=== PATIENT | male | born 1970 | race Caucasian/White ===

== ENCOUNTER 2022-07-31 09:43 | Outpatient (REF) | payer OTHER, SELFPAY ==
[2022-07-31 15:15] LABS: Influenza A PCR NEGATIVE (Negative); Influenza B PCR NEGATIVE (Negative); Resp Syncy Virus RNA Qual PCR NEGATIVE (Negative); SARS COV2 PCR INHOUSE NEGATIVE (Negative)
== END 2022-07-31 09:44 | disposition home or self-care (01) ==
LOC: HO.LAB 09:43
PROVIDERS: Visit Provider Family Medicine
DX: Z20.822 Contact with and (suspected) exposure to COVID-19 (principal)
CPT/HCPCS: 0241U

== ENCOUNTER 2023-11-13 08:20 | Outpatient (AMB) | payer OTHER, SELFPAY ==
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
[2023-11-13 08:29] VITALS: BP 144/100; PULSE 64; O2SAT 98; BMI 35.4
== END 2023-11-13 11:06 | disposition home or self-care (01) ==
PROVIDERS: PCP Internal Medicine; Visit Provider Nurse Practitioner Family
DX: R51.9 Headache, unspecified (principal); G93.0 Cerebral cysts; R90.82 White matter disease, unspecified; G47.19 Other hypersomnia; Z86.69 Personal history of other diseases of the nervous system and sense organs; G47.9 Sleep disorder, unspecified; R25.1 Tremor, unspecified; R06.83 Snoring
CPT/HCPCS: 99204

== ENCOUNTER → 2023-11-13 08:20 | Outpatient (BNVA) | payer OTHER, SELFPAY | PROVIDERS: PCP Internal Medicine; Visit Provider Nurse Practitioner Family ==

== ENCOUNTER 2023-11-13 10:10 | Outpatient (REF) | payer OTHER, SELFPAY ==
[2023-11-13 17:25] LABS: MANUAL DIFF FLAG NO
[2023-11-13 17:32] LABS: Basophils Percent Auto 0.6 % (0-2); Eosinophils Absolute Auto 0.1 X10*3/uL (0.0-0.4); Eosinophils Percent Auto 1.7 % (0-4); Hematocrit 42.5 % (42.0-52.0); Hemoglobin 14.5 g/dl (14.0-18.0); Imm Gran Abs Auto 0.02 X10*3/uL (0.00-0.03); Imm Gran Pct Auto 0.4 % (0.0-0.4); Lymphocytes Absolute Auto 1.7 X10*3/uL (1.2-4.9); Lymphocytes Percent Auto 31.1 % (20-40); Mean Corpuscular HGB Conc 34.1 g/dl (31.0-36.0); Mean Corpuscular Hemoglobin 29.8 pg (27.0-33.0); Mean Corpuscular Volume 87.3 fL (80.0-98.0); Mean Platelet Volume 11.6 fL (9.4-12.4); Monocytes Absolute Auto 0.4 X10*3/uL (0.1-1.2); Monocytes Percent Auto 7.8 % (2-11); Neutrophils Absolute Auto 3.2 x10*3/uL (2.0-8.3); Neutrophils Percent Auto 58.4 % (45-73); Platelet Count 245 X10*3/uL (160-400); Red Blood Count 4.87 X10*6/uL (4.60-5.80); Red Cell Distribution Width 12.3 % (11.0-16.0); White Blood Count 5.4 X10*3/uL (4.8-10.8)
[2023-11-13 18:19] LABS: Rheumatoid Factor < 13.0 IU/mL (<15.0)
[2023-11-13 18:24] LABS: Alanine Aminotransferase 21 U/L (0-40); Albumin Level 4.4 g/dL (3.5-5.0); Alkaline Phosphatase 65 U/L (39-117); Anion Gap 14 (12-20); Aspartate Amino Transferase 15 U/L (5-37); Blood Urea Nitrogen 15 mg/dL (9-16); Calcium 9.8 mg/dL (8.4-10.2); Carbon Dioxide 23 mmol/L (22-29); Chloride 106 mmol/L (96-108); Estimated Glomerular Filt Rate > 60; Glucose Random 105 mg/dL (60-115); Potassium 4.5 mmol/L (3.3-5.1); Sodium 138 mmol/L (135-145); Total Protein 7.3 g/dL (6.5-8.0)
[2023-11-13 18:31] LABS: TSH reflex Free T4 0.98 uIU/mL (0.32-4.0)
[2023-11-13 18:33] LABS: Erythrocyte Sedimentation Rate 6 MM/HR (0-15)
[2023-11-14 17:14] LABS: CRP High Sensitivity 1.7 mg/L
[2023-11-14 17:43] LABS: Lyme Abs Screen <0.90 index
[2023-11-21 11:02] LABS: Anti Nuclear Antibody Screen NEGATIVE (NEGATIVE)
== END 2023-11-13 10:11 | disposition home or self-care (01) ==
LOC: HO.HKASLDS 10:10
PROVIDERS: Visit Provider Nurse Practitioner Family
DX: R51.9 Headache, unspecified (principal); I10 Essential (primary) hypertension
CPT/HCPCS: 36415; 80053; 84443; 85025; 85652; 86038; 86141; 86431; 86617; 86618

== ENCOUNTER 2023-12-31 08:34 | Outpatient (REF) | payer OTHER, SELFPAY ==
--- NOTE | ~2023-12-31 | XR_ITS ---
EXAMINATION: ORBITS PRE-MRI CLINICAL INFORMATION: Pre-MRI COMPARISON: None available. TECHNIQUE: 3 views FINDINGS: No radiopaque foreign body. Orbits intact. Visualized paranasal sinuses clear. XR/XR pre mri screening IMPRESSION: Negative Electronically signed by: Pancho Blanchard MD 12/31/2023 09:13 AM EDT RP
--- NOTE | ~2023-12-31 | MR_ITS ---
EXAMINATION: MR BRAIN WITH AND WITHOUT CONTRAST CLINICAL INFORMATION: arachnoid cyst, history of frontal lobe tumor, TIA, prior trauma, tremors, concern for left trigeminal nerve pathology COMPARISON: None. TECHNIQUE: MRI of the brain was obtained using routine sequences before and following administration of intravenous contrast. A total of 10 mL of Gadavist was administered intravenously. FINDINGS: The left superior cerebellar artery is seen interposed between the left lateral kalen and proximal cisternal left trigeminal nerve near the root entry zone (image 62, series 18) with possible slight deformity that can be correlated clinically for neurovascular compression. The right superior cerebellar artery contacts the superomedial aspect of the proximal right cisternal trigeminal nerve without deformity. No abnormal enhancement or mass along the intracranial and extracranial course of the trigeminal nerves. Normal fluid signal intensity of Meckel's caves. Fat within the periorbital fissures, pterygopalatine fossa, trigeminal fat pad, and mandibular alveolar foramina is preserved. No acute infarct. No extra-axial fluid collection. The ventricles and sulci are normal in size and configuration without significant volume loss or hydrocephalus. A couple nonspecific T2 FLAIR hyperintense foci in the supratentorial white matter of no clinical significance. No abnormal intraparenchymal or leptomeningeal enhancement. No significant mass effect or herniation pattern. The intracranial dural venous sinus and arterial flow voids are preserved. Prominence of the left-sided retrocerebellar CSF space with mild mass effect along the left cerebellum suggestive of an arachnoid cyst. There is also focal prominence of the extra-axial CSF space along the left parasagittal parietal convexity for which an additional arachnoid cyst at this location is not excluded. The orbits are grossly unremarkable. Retention cyst in the left maxillary sinus and trace mucosal thickening of the ethmoid air cells and maxillary sinuses. No mastoid effusion. Normal marrow signal. MR/MR head/brain wo/w con IMPRESSION: 1. The left superior cerebellar artery is seen interposed between the left lateral kalen and proximal cisternal left trigeminal nerve near the root entry zone (image 62, series 18) with possible slight deformity that can be correlated clinically for neurovascular compression. 2. The right superior cerebellar artery contacts the superomedial aspect of the proximal right cisternal trigeminal nerve without deformity. 3. 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 4. Prominence of the left-sided retrocerebellar CSF space with mild mass effect along the left cerebellum suggestive of an arachnoid cyst. Electronically signed by: Angela Avendano MD 01/16/2024 04:39 PM EDT RP
[2023-12-31] MEDS: gadobutroL 10 ML VIAL IVPUSH (10:42)
== END 2023-12-31 08:35 | disposition home or self-care (01) ==
LOC: HO.MRI 08:34
PROVIDERS: PCP Internal Medicine; Visit Provider Nurse Practitioner Family
DX: R51.9 Headache, unspecified (principal); G93.0 Cerebral cysts; R90.82 White matter disease, unspecified
CPT/HCPCS: 70553; A9585

== ENCOUNTER → 2023-12-31 10:00 | Outpatient (BNV) | payer OTHER, SELFPAY | PROVIDERS: PCP Internal Medicine; Visit Provider Psychiatry & Neurology Neurology | DX: G47.33 Obstructive sleep apnea (adult) (pediatric) (principal) | CPT/HCPCS: 95806 ==

== ENCOUNTER → 2023-12-31 10:57 | Outpatient (REF) | payer OTHER, SELFPAY | LOC: HO.SL 10:57 | PROVIDERS: PCP Internal Medicine; Visit Provider Nurse Practitioner Family | DX: G47.00 Insomnia, unspecified (principal); G47.19 Other hypersomnia; Z86.69 Personal history of other diseases of the nervous system and sense organs; G47.9 Sleep disorder, unspecified | CPT/HCPCS: 95806 ==

== ENCOUNTER → 2024-02-05 20:30 | Outpatient (REF) | payer OTHER, SELFPAY | LOC: HO.SL 20:30 | PROVIDERS: PCP Internal Medicine; Visit Provider Nurse Practitioner Family | DX: G47.34 Idiopathic sleep related nonobstructive alveolar hypoventilation (principal); G47.33 Obstructive sleep apnea (adult) (pediatric); R06.09 Other forms of dyspnea | CPT/HCPCS: 95811 ==

== ENCOUNTER → 2024-02-05 21:21 | Outpatient (BNV) | payer OTHER, SELFPAY | PROVIDERS: PCP Internal Medicine; Visit Provider Psychiatry & Neurology Neurology | DX: G47.33 Obstructive sleep apnea (adult) (pediatric) (principal); G47.34 Idiopathic sleep related nonobstructive alveolar hypoventilation | CPT/HCPCS: 95811 ==

== ENCOUNTER 2024-02-18 13:02 | Outpatient (AMB) | payer OTHER, SELFPAY ==
[2024-02-18 13:16] VITALS: BP 120/70; PULSE 96; BMI 35.6
--- NOTE | 2024-02-18 13:16 | MHC.OFFVIS ---
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 He states that over the last year or so, he has been getting short of breath with activity. He also gets dizzy at times. No known cardiac history. Today, his EKG shows atrial fibrillation but he states he is not aware of that. Otherwise, no known coronary disease or myocardial infarction or cardiomyopathy. [facility] Surgical History H/O hernia repair H/O lithotripsy Family History Mother HTN (hypertension) Stroke Social History Alcohol intake: current Patient Tobacco Use Status: Never used Tobacco Review of Systems Const Denies chills, Denies fatigue, Denies fever(s), Denies frequent falls, Denies weakness, Denies weight gain and Denies weight loss ENT Denies dizziness Card Denies chest pain, Denies leg edema, Denies lightheadedness, Denies palpitations, Denies dyspnea, Denies dyspnea on exertion and Denies orthopnea Resp Denies cough, Denies dyspnea and Denies dyspnea on exertion GI Denies bloating and Denies change in bowel habits Musc Denies muscle weakness, Denies numbness and Denies tingling Neuro Denies dizziness, Denies frequent falls, Denies numbness, Denies tingling and Denies weakness Endo Denies fatigue and Denies palpitations Physical Exam Vital Signs: Last Vital Signs Pulse 96 02/18/24 13:16 BP 120/70 02/18/24 13:16 BMI result Body Mass Index 35.6 Const General: comfortable and no acute distress Orientation/consciousness: patient oriented x3 HEENT Other: Unremarkable Head: Yes normal to inspection Neck Neck: Yes normal visual inspection Chest Chest palpation & inspection: normal inspection of the chest Resp Auscultation: clear to auscultation bilaterally Cardio Palpation: normal PMI Heart sounds: S1 normal heart sound present, S2 normal heart sound present, no gallops, no murmurs and no rubs GI Palpation (GI): Soft to palpation Back/Spine/Pelvis Other: unremarkable Skin General skin exam: no rashes or lesions noted Neuro General: patient oriented x3 Extrem General: Yes normal to inspection Psych Mental Status: mental status grossly normal Office Procedures EKG Details: EKG with underlying atrial fibrillation at 96/Min; inferior and anterolateral T inversions. [id number], Complete Assessment & Plan Assessment & Plan (1) Atrial fibrillation: Code(s): I48.91 - Unspecified atrial fibrillation Category: Medical Plan EKG today shows atrial fibrillation. In a prior EKG from 2020 at [facility], he was in sinus rhythm. Actual time of onset of atrial fibrillation not clear but could have been over the last few months when he has been having shortness of breath with activity. Pathophysiology of this discussed. Further workup will include echocardiogram and Holter monitor. Subsequently, plan cardioversion. We will check with Neurology if there is any contraindication for anticoagulation due to arachnoid cyst. He also has obstructive sleep apnea and ideally should be on CPAP before cardioversion. His baseline labs are unremarkable including thyroid function. We will check cardiac BNP/PT INR. With regard hypertension, seems controlled. He is on amlodipine/propranolol. Because of beta-jesse use, rate is reasonably controlled. We will follow-up after testing. Orders: Orders Prothrombin Time INR Today I48.91 - Unspecified atrial fibrillation CA echo transthoracic complete Today I48.91 - Unspecified atrial fibrillation ECG 3 day holter monitor Today I48.91 - Unspecified atrial fibrillation B Type Natriuretic Peptide Today I50.9 - Heart failure, unspecified Coding Level of Care Code New Pt Level 4 (42755) Diagnoses Atrial fibrillation I48.91 CPT Codes EKG - CPT: 89583-[id number], Complete ([id number])
== END 2024-02-18 13:43 | disposition home or self-care (01) ==
PROVIDERS: PCP Internal Medicine; Visit Provider Internal Medicine
DX: I48.91 Unspecified atrial fibrillation (principal)
CPT/HCPCS: 93010; 99204

== ENCOUNTER → 2024-02-18 13:02 | Outpatient (BNVA) | payer OTHER, SELFPAY | PROVIDERS: PCP Internal Medicine; Visit Provider Internal Medicine | DX: I48.91 Unspecified atrial fibrillation (principal) | CPT/HCPCS: 93005 ==

== ENCOUNTER 2024-02-20 12:56 | Outpatient (REF) | payer OTHER, SELFPAY ==
[2024-02-20 14:16] LABS: Prothrombin Time 11.1 SEC (10.9-12.4)
[2024-02-20 14:47] LABS: B Type Natriuretic Peptide 140 pg/mL (<100)
== END 2024-02-20 12:57 | disposition home or self-care (01) ==
LOC: HO.LAB 12:56
PROVIDERS: PCP Internal Medicine; Visit Provider Internal Medicine
DX: I48.91 Unspecified atrial fibrillation (principal); I50.9 Heart failure, unspecified
CPT/HCPCS: 36415; 83880; 85610

== ENCOUNTER 2024-02-26 13:31 | Outpatient (AMB) | payer OTHER, SELFPAY ==
[2024-02-26 13:44] VITALS: BP 104/62; PULSE 67; O2SAT 98; BMI 35.5
--- NOTE | 2024-02-26 13:44 | A.OFFVIS_ITS ---
Vital Signs 02/26/24 13:44 Height 6 ft 1 in Weight 268 lb 15.423 oz BMI 35.5 BP 104/62 Blood Pressure Location Rt brachial Position Sitting Pulse 67 Pulse Source Doppler Pulse Oximetry (%) 98 Oxygen Delivery Method Room Air Intake Visit Reasons: belkis Allergies lisinopril Allergy (Mild, Verified 02/26/24 13:49) sensativity to light, diarrhea naproxen Allergy (Mild, Verified 02/26/24 13:49) stomach problems penicllin Allergy (Mild, Uncoded 11/13/23 08:33) Rash HPI HPI belkis: Details: 53-year-old gentleman, nonsmoker, with underlying hypertension and AFib, and recent diagnosis of mild obstructive sleep apnea, also noted to have nocturnal hypoxemia referred for pulmonary follow-up. Patient states that he had a CPAP machine many years prior, however secondary to his work schedule he was not able to use it. He is interested in trying CPAP therapy again. Patient also complains of intermittent dyspnea on exertion and he is undergoing further cardiac workup. [facility] Surgical History H/O hernia repair H/O lithotripsy Family History Mother HTN (hypertension) Stroke Social History Alcohol intake: current Patient Tobacco Use Status: Never used Tobacco Review of Systems Const Denies daytime sleepiness, Denies excessive sweating, Denies fatigue, Denies fever(s), Denies lethargy, Denies malaise, Denies night sweats, Reports snoring and Denies weight loss Eyes Denies blurry vision and Denies itchy eyes ENT Denies nasal congestion, Denies post nasal drip, Denies sinus pain, Denies sinus pressure and Denies other ( Thrush) Card Denies chest pain, Denies pedal edema, Denies dyspnea, Reports dyspnea on exertion, Denies orthopnea and Denies paroxysmal nocturnal dyspnea Resp Denies cough, Denies hemoptysis, Denies excessive phlegm production, Denies dyspnea, Reports dyspnea on exertion, Reports snoring and Denies wheezing GI Denies abdominal pain and Denies heartburn Musc Denies myalgias, Denies arthralgias and Denies joint swelling Skin/Breast Denies rash Neuro Denies memory loss and Denies seizure-like activity Psych Denies abnormal sleep pattern, Denies anxiety and Denies memory loss Endo Denies excessive sweating, Denies fatigue and Denies heat intolerance Craig/Lymph Denies easy bruising Aller/Immun Denies itchy eyes, Denies seasonal rhinorrhea and Denies wheezing Physical Exam Vital Signs: Last Vital Signs Pulse 67 02/26/24 13:44 BP 104/62 02/26/24 13:44 Pulse Ox 98 02/26/24 13:44 Oxygen Delivery Method Room Air 02/26/24 13:44 BMI result Body Mass Index 35.5 Const General: no acute distress and alert Nutritional Appearance: obese Orientation/consciousness: Other orientation findings ( oriented) HEENT Head: Yes atraumatic Eyes General: appearance normal, both eyes and all related structures Sclerae: sclerae normal EOM: EOMs intact bilaterally Neck Neck: Yes supple Lymphatic: no lymphadenopathy noted Resp Effort & Inspection: normal respiratory effort and no use of accessory muscles Auscultation: clear to auscultation bilaterally Cardio Rate: regular rate Rhythm: regular rhythm Heart sounds: no gallops, no murmurs and no rubs Skin General skin exam: other ( warm) Extrem General: No clubbing, No cyanosis and No edema Assessment & Plan Assessment & Plan (1) Mild obstructive sleep apnea: Code(s): G47.33 - Obstructive sleep apnea (adult) (pediatric) Category: Medical (2) HTN (hypertension): Code(s): I10 - Essential (primary) hypertension Category: Medical (3) Nocturnal hypoxemia: Code(s): G47.34 - Idiopathic sleep related nonobstructive alveolar hypoventilation Category: Medical Plan Underlying mild obstructive sleep apnea with hypotension and hypoxia BI. Will start on APAP of 6-16 cm of water and assess for improvement in sleep apnea symptoms, then would consider repeating overnight oximetry on CPAP. Coding Level of Care Code New Pt Level 4 (64659) Diagnoses Mild obstructive sleep apnea G47.33 HTN (hypertension) I10 Nocturnal hypoxemia G47.34
== END 2024-02-26 14:01 | disposition home or self-care (01) ==
LOC: HO.HPS 13:31
PROVIDERS: PCP Internal Medicine; Visit Provider Internal Medicine Pulmonary Disease
DX: G47.33 Obstructive sleep apnea (adult) (pediatric) (principal); I10 Essential (primary) hypertension; G47.34 Idiopathic sleep related nonobstructive alveolar hypoventilation
CPT/HCPCS: 99204

== ENCOUNTER → 2024-02-26 13:31 | Outpatient (BNVA) | payer OTHER, SELFPAY | PROVIDERS: PCP Internal Medicine; Visit Provider Internal Medicine Pulmonary Disease ==

== ENCOUNTER → 2024-03-13 10:01 | Outpatient (REF) | payer OTHER, SELFPAY ==
--- NOTE | 2024-03-13 10:04 | CA_ITS ---
Transthoracic Echocardiogram Patient (Last, First, Middle): Néstor Barrera J Gender: Male Date of : 1970 Age: 53 Procedure Date: 03/13/2024 Procedure Type: Transthoracic Echocardiogram Location: OP Height: 185. cm Weight: 121.57 kg BSA: 2.43 m2 Heart Rate: 99 bpm BP: 148 / 90 mmHg Art Education Professor: CHRISTINE Referring MD: Gerald Fletcher MD Symptoms: I48.91 - Unspecified atrial fibrillation Study Quality: Adequate w/Contrast ECG Rhythm: Atrial Fibrillation Conclusions: - Normal left ventricular cavity size. There is normal left ventricular wall thickness. The left ventricular systolic function is mildly decreased. The visually estimated ejection fraction is between 40-45%. - Mildly increased right ventricular cavity size. There is mildly decreased right ventricular systolic function. - The left atrium is severely dilated. Findings Procedure Information Contrast agent, definity, is being given per protocol with complications as noted. The patient experienced back pain from contrast. Left Ventricle Normal left ventricular cavity size. There is normal left ventricular wall thickness. The left ventricular systolic function is mildly decreased. The visually estimated ejection fraction is between 40-45%. There is no evidence of regional wall motion abnormalities. There is mild global hypokinesis. Diastolic function is indeterminate on the basis of available data. Right Ventricle Mildly increased right ventricular cavity size. There is mildly decreased right ventricular systolic function. Atria The left atrium is severely dilated. Aortic Valve Normal aortic valve structure and function. There is no aortic valve stenosis. There is no aortic valve regurgitation. Mitral Valve The mitral valve appears normal. There is no mitral valve regurgitation. There is no mitral valve stenosis. Pulmonic Valve The pulmonic valve is likely normal. Tricuspid Valve Normal tricuspid valve structure. There is no tricuspid valve regurgitation. Tricuspid regurgitation envelope is inadequate for calculation of right ventricular systolic pressure. Normal right atrial pressure. Great Vessels All visible segments of the aorta are normal in size. The visualized portions of the pulmonary artery and branches are normal. Venous The inferior vena cava is normal in size and collapses greater than 50% with inspiration. Pericardium/Pleural There is no evidence of pericardial effusion. Prior Study Comparison No prior study available for comparison. Measurements 2D Linear Measurements IVSd: 1.07 0.6-0.9/0.6-1.0 cm LVIDd: 4.91 3.9-5.3/4.2-5.9 cm LVIDd Index: 2.02 2.4-3.2/2.2-3.1 cm/m2 LVIDs: 3.47 2.0-3.6 cm LVPWd: 0.95 0.7-1.1 cm LA Diam: 5.40 2.7-3.8/3.0-4.0 cm LAIDs Index: 2.22 1.5-2.3 cm/m2 LV Mass: 223.62 67-162/88-224 g LV Mass Index: 92.02 43-95/49-115 g/m2 LVOT Diam: 2.20 3.0+(-)1.3 cm 2D Systolic Function EF 4C: 32.70 >55% EF 2C: 47.40 >55% EF BiP: 41.70 >55% Mitral Valve MV Pk E: 1.00 MV Decel Time: 157.00 E'Lateral: 4.79 E'Medial: 4.68 E/E' Med: 21.30 E/E' Lat: 20.80 PHT: 46.00 MVA PHT: 4.78 Decel Mcintosh: 6.35 Aortic Valve AoV Pk Michael: 0.90 AoV Mn Michael: 0.71 AoV VTI: 0.18 AoV Pk Grad: 3.00 Aov Mn Grad: 2.00 YUE Cont.VTI: 2.52 LVOT LVOT Pk Michael: 0.67 LVOT Mn Michael: 0.47 LVOT VTI: 0.12 LVOT Pk Grad: 2.00 LVOT Mn Grad: 1.00 LVOT Diam: 2.20 LVOT Area: 3.80 Diastolic Function MV Pk E: 1.00 E'Medial: 4.68 E/E' Med: 21.30 E' Laterial: 4.79 E/E' Lat: 20.80 Right Ventricle TAPSE (mm): 18.80 TVS' Michael: 9.76 Tricuspid Valve RA Press: 8.00 Great Vessels Aorta Sinus of Valsalva: 3.90 2.0-3.5 cm Ao Asc: 3.40 2.1-3.4 cm Ao Arch: 3.20 Pulmonary Valve PV Pk Michael: 0.79 Peak PV Grad: 3.00 Updated in Other Vendor System with Status of Final Boyd Wright MD electronically signed on 03/16/2024 8:38:49 AM with status of Final
--- NOTE | 2024-03-13 10:04 | HM_ITS ---
Conclusion: 1. Patient was monitored for total period of 3 days 2. Baseline was atrial fibrillation with average heart of 125 beats per minute in adequate rate control with maximum heart rate 196 beats per minute with 67% of time heart rate about 100 beats per minute 3. No significant pauses noted 4. No patient reported events MTDD
== END ==
LOC: HO.CARD 10:01
PROVIDERS: PCP Internal Medicine; Visit Provider Internal Medicine
DX: I48.91 Unspecified atrial fibrillation (principal)
CPT/HCPCS: 93242; 93306; Q9957

== ENCOUNTER → 2024-03-13 10:04 | Outpatient (BNV) | payer OTHER, SELFPAY | PROVIDERS: PCP Internal Medicine; Visit Provider Internal Medicine Cardiovascular Disease | DX: I48.91 Unspecified atrial fibrillation (principal) | CPT/HCPCS: 93244; 93306 ==

== ENCOUNTER 2024-03-30 13:30 | Outpatient (AMB) | payer OTHER, SELFPAY ==
[2024-03-30 13:42] VITALS: BP 140/78; PULSE 70; BMI 35.5
--- NOTE | 2024-03-30 13:42 | A.OFFVIS_ITS ---
Vital Signs 03/30/24 13:42 Height 6 ft 1 in Weight 268 lb 15.423 oz BMI 35.5 BP 140/78 H Blood Pressure Location Lt brachial Position Sitting Pulse 70 Pulse Source Pulse Oximeter Intake Visit Reasons: 6 wk f/up holter and echo Allergies lisinopril Allergy (Mild, Verified 02/26/24 13:49) sensativity to light, diarrhea naproxen Allergy (Mild, Verified 02/26/24 13:49) stomach problems perflutren Allergy (Mild, Verified 03/13/24 12:03) Back Pain penicllin Allergy (Mild, Uncoded 11/13/23 08:33) Rash Medication List - Last Reconciled 03/30/24 by Gerald Fletcher MD amlodipine 10 mg PO DAILY propranolol ER 120 mg PO DAILY rivaroxaban (Xarelto) 20 mg PO DAILY HPI Comments Details: Néstor returns for follow-up. Recently seen in consultation regarding shortness of breath. Over the last year, he has been getting short of breath with activity. Some dizziness at times. Then EKG had shown atrial fibrillation but not a known diagnosis. No previous history of coronary disease or myocardial infarction or cardiomyopathy. He has undergone further workup including echocardiogram and Holter monitor. Now he returns for follow-up. Overall, he states he feels fine. There was an issue with cost of Eliquis and now he has started Xarelto through a coupon. Unclear if he will be able to afford this long-term. Also started CPAP. [facility] Surgical History H/O hernia repair H/O lithotripsy Family History Mother HTN (hypertension) Stroke Social History Alcohol intake: current Patient Tobacco Use Status: Never used Tobacco Review of Systems Const Denies weakness ENT Denies dizziness Card Reports chest pain, Denies chest pain with activity, Denies syncope, Denies rapid heart rate, Denies pedal edema, Denies edema, Denies leg edema, Denies lightheadedness, Denies palpitations, Denies dyspnea, Denies dyspnea on exertion and Denies orthopnea Resp Denies cough, Denies dyspnea and Denies dyspnea on exertion GI Denies hematochezia and Denies change in stool character Musc Denies abnormal gait, Denies muscle cramps, Denies muscle weakness, Denies numbness, Denies radiating pain into limb and Denies tingling Neuro Denies abnormal gait, Denies dizziness, Denies syncope, Denies numbness, Denies tingling and Denies weakness Endo Denies palpitations Physical Exam Vital Signs: Last Vital Signs Pulse 70 03/30/24 13:42 BP 140/78 H 03/30/24 13:42 BMI result Body Mass Index 35.5 Const General: comfortable and no acute distress Orientation/consciousness: patient oriented x3 HEENT Other: Unremarkable Head: Yes normal to inspection Neck Neck: Yes normal visual inspection Chest Chest palpation & inspection: normal inspection of the chest Resp Auscultation: clear to auscultation bilaterally Cardio Palpation: normal PMI Heart sounds: S1 normal heart sound present, S2 normal heart sound present, no gallops, no murmurs and no rubs GI Palpation (GI): Soft to palpation Back/Spine/Pelvis Other: unremarkable Skin General skin exam: no rashes or lesions noted Neuro General: patient oriented x3 Extrem General: Yes normal to inspection Psych Mental Status: mental status grossly normal Assessment & Plan Assessment & Plan (1) Atrial fibrillation: Code(s): I48.91 - Unspecified atrial fibrillation Category: Medical (2) Cardiomyopathy: Code(s): I42.9 - Cardiomyopathy, unspecified Category: Medical Plan Recent EKG shows atrial fibrillation. In a prior EKG from 2020 at [facility], he was in sinus rhythm. In the echocardiogram, LVEF 40-45%. Severely dilated left atrium. Overall, time of onset of atrial fibrillation is not clear but based on the left atrial size as well as cardiomyopathy, this could have been several months or few years. Holter monitor still pending. Unless he has intermittent atrial fibrillation, likely needs cardioversion. He just started the Xarelto within the last 3-4 days. Hence needs it for at least 1 month before we can cardiovert him. Medications will need to be optimized as well. For the time being, he can continue the propranolol that he also takes for tremors. He is on amlodipine for blood pressure. With regard to the obstructive sleep apnea, started CPAP and that needs to be maintain daily. Weight loss will help tremendously. We also discussed about EP referral/ablation and that will need to be addressed in more detail in the future. Cardiomyopathy possibly related to atrial fibrillation. He does not have any ischemic symptoms. Once he is cardioverted and in sinus rhythm, consider coronary CTA. Coding Level of Care Code Est Pt Level 4 (60010) Diagnoses Atrial fibrillation I48.91 Cardiomyopathy I42.9
== END 2024-03-30 14:32 | disposition home or self-care (01) ==
PROVIDERS: PCP Internal Medicine; Visit Provider Internal Medicine
DX: I48.91 Unspecified atrial fibrillation (principal); I42.9 Cardiomyopathy, unspecified
CPT/HCPCS: 99214

== ENCOUNTER 2024-04-17 09:38 | Outpatient (AMB) | payer OTHER, SELFPAY ==
[2024-04-17 09:40] VITALS: BP 112/77; PULSE 84; O2SAT 99; BMI 35.8
--- NOTE | 2024-04-17 09:40 | MHC.OFFVIS ---
Vital Signs 04/17/24 09:40 Height 6 ft 1 in Weight 271 lb BMI 35.8 BP 112/77 Blood Pressure Location Lt brachial Position Sitting Pulse 84 Pulse Source Doppler Pulse Oximetry (%) 99 Oxygen Delivery Method Room Air Intake Visit Reasons: Obstructive sleep apnea Allergies lisinopril Allergy (Mild, Verified 02/26/24 13:49) sensativity to light, diarrhea naproxen Allergy (Mild, Verified 02/26/24 13:49) stomach problems perflutren Allergy (Mild, Verified 03/13/24 12:03) Back Pain penicllin Allergy (Mild, Uncoded 11/13/23 08:33) Rash HPI HPI Obstructive sleep apnea: Details: 53-year-old gentleman, nonsmoker, with underlying hypertension and AFib, and recent diagnosis of mild obstructive sleep apnea, also noted to have nocturnal hypoxemia referred for pulmonary follow-up. Patient states that he had a CPAP machine many years prior, however secondary to his work schedule he was not able to use it. He is interested in trying CPAP therapy again. Patient also complains of intermittent dyspnea on exertion and he is undergoing further cardiac workup. After the last office visit patient has received his CPAP has been using with good control of his sleep apnea symptoms. He is also planned for cardioversion. [facility] Medical History (Updated 04/17/24 @ 09:15 by Cleo Bishop PA-C) Mild obstructive sleep apnea HTN (hypertension) Atrial fibrillation Cardiomyopathy Surgical History H/O hernia repair H/O lithotripsy Family History Mother HTN (hypertension) Stroke Social History Alcohol intake: current Patient Tobacco Use Status: Never used Tobacco Review of Systems Const Denies daytime sleepiness, Denies excessive sweating, Denies fatigue, Denies fever(s), Denies lethargy, Denies malaise, Denies night sweats, Denies snoring and Denies weight loss Eyes Denies blurry vision and Denies itchy eyes ENT Denies nasal congestion, Denies post nasal drip, Denies sinus pain, Denies sinus pressure and Denies other ( Thrush) Card Denies chest pain, Denies pedal edema, Denies dyspnea, Denies orthopnea and Denies paroxysmal nocturnal dyspnea Resp Denies cough, Denies hemoptysis, Denies excessive phlegm production, Denies dyspnea, Denies snoring and Denies wheezing GI Denies abdominal pain and Denies heartburn Musc Denies myalgias, Denies arthralgias and Denies joint swelling Skin/Breast Denies rash Neuro Denies memory loss and Denies seizure-like activity Psych Denies abnormal sleep pattern, Denies anxiety and Denies memory loss Endo Denies excessive sweating, Denies fatigue and Denies heat intolerance Craig/Lymph Denies easy bruising Aller/Immun Denies itchy eyes, Denies seasonal rhinorrhea and Denies wheezing Physical Exam Vital Signs: Last Vital Signs Pulse 84 04/17/24 09:40 BP 112/77 04/17/24 09:40 Pulse Ox 99 04/17/24 09:40 Oxygen Delivery Method Room Air 04/17/24 09:40 BMI result Body Mass Index 35.8 Const General: no acute distress and alert Nutritional Appearance: not obese Orientation/consciousness: Other orientation findings ( oriented) HEENT Head: Yes atraumatic Eyes General: appearance normal, both eyes and all related structures Sclerae: sclerae normal EOM: EOMs intact bilaterally Neck Neck: Yes supple Lymphatic: no lymphadenopathy noted Resp Effort & Inspection: normal respiratory effort and no use of accessory muscles Auscultation: clear to auscultation bilaterally Cardio Rate: regular rate Rhythm: regular rhythm Heart sounds: no gallops, no murmurs and no rubs Skin General skin exam: other ( warm) Extrem General: No clubbing, No cyanosis and No edema Assessment & Plan Assessment & Plan (1) Mild obstructive sleep apnea: Code(s): G47.33 - Obstructive sleep apnea (adult) (pediatric) Category: Medical Plan: Therapy and compliance report reviewed - patient is benefitting from and is compliant with noninvasive positive pressure ventilation treatment, using it greater than 70% of the time, more than 4 hours per night. Well controlled on current CPAP therapy. Continue CPAP therapy. (2) Nocturnal hypoxemia: Code(s): G47.34 - Idiopathic sleep related nonobstructive alveolar hypoventilation Category: Medical Plan: Will repeat overnight oximetry to evaluate if hypoxia has resolved with CPAP therapy. Orders: Orders Overnight Pulse Oximetry Today G47.34 - Idiopathic sleep related nonobstructive alveolar hypoventilation Coding Level of Care Code Est Pt Level 4 (82615) Diagnoses Mild obstructive sleep apnea G47.33 Nocturnal hypoxemia G47.34
== END 2024-04-17 09:50 | disposition home or self-care (01) ==
PROVIDERS: PCP Internal Medicine; Visit Provider Internal Medicine Pulmonary Disease
DX: G47.33 Obstructive sleep apnea (adult) (pediatric) (principal); G47.34 Idiopathic sleep related nonobstructive alveolar hypoventilation
CPT/HCPCS: 99214

== ENCOUNTER 2024-05-08 09:51 | Day surgery (SDC) | payer OTHER, SELFPAY ==
--- OUTSIDE RECORDS SUMMARY | 2024-04-27 09:36 | XMS_ITS | Patient Health Record ---
Author Organization [facility] Address [address], [place] [id number] Care Team Providers Care Grease Maker Head Name Role Phone No, PCP Primary Care Provider Irina Hammer Unavailable [phone] Reason For Referral No Information Plan Of Treatment No Information Insurance Providers Payer Name Payer Address Payer Phone Subscriber Number Group Number Insured Name Patient Relationship to Insured Coverage Start Date Coverage End Date [place] Medicaid Standard [address] [place] [address] [id number] Néstor Perea Self - patient is the insured 1 Insurance Pending [address] [place] [id number] Néstor Perea Self - patient is the insured 1
--- NOTE | 2024-05-06 12:08 | P.CONAN_ITS ---
Documented by User: Mouna Reagan NP 05/06/24 12:10 HPI - Anesthesia Eval Consult details Narrative: 53yo M for Cardioversion Xarelto for afib PMFSH Active Problems Active Problems: All Active Problems Cardiomyopathy (Acute) Atrial fibrillation (Acute) Dyspnea on minimal exertion (Acute) Mild obstructive sleep apnea (Acute) Nocturnal hypoxemia (Acute) Loud snoring (Acute) Tremor (Acute) Sleep difficulties (Acute) History of obstructive sleep apnea (Acute) Excessive daytime sleepiness (Acute) White matter abnormality on MRI of brain (Acute) Intracranial arachnoid cyst (Acute) HTN (hypertension) (Acute) Left-sided headache (Acute) Past Medical History Medical History (Updated 04/17/24 @ 09:15 by Cleo Bishop PA-C) Mild obstructive sleep apnea HTN (hypertension) Atrial fibrillation Cardiomyopathy Family History Family History Mother HTN (hypertension) Stroke Surgical History Surgical History H/O hernia repair H/O lithotripsy Social History Social History Alcohol intake: current Patient Tobacco Use Status: Never used Tobacco Use of substances other than those prescribed or required for medical reasons: No Advance Directives: No Advance Directives Information Provided: Yes Meds Allergies Allergy/AdvReac Type Severity Reaction Status Date / Time lisinopril Allergy Mild sensativity Verified 02/26/24 13:49 to light, diarrhea naproxen Allergy Mild stomach Verified 02/26/24 13:49 problems perflutren Allergy Mild Back Pain Verified 03/13/24 12:03 penicllin Allergy Mild Rash Uncoded 11/13/23 08:33 Home Medications ?Medication ?Instructions ?Recorded ?Confirmed ?Last Taken ?Type amlodipine 10 mg tablet 10 mg PO DAILY 07/31/22 03/30/24 Unknown History Exam Narrative Narrative: EKG 03/[address] & T wave abn ECHO 2023 Conclusions: - Normal left ventricular cavity size. There is normal left ventricular wall thickness. The left ventricular systolic function is mildly decreased. The visually estimated ejection fraction is between 40-45%. - Mildly increased right ventricular cavity size. There is mildly decreased right ventricular systolic function. - The left atrium is severely dilated. Assessment and Plan Assessment Anesthesia Assessment: Chart Reviewed Documented by User: Marty Ribeiro MD 05/08/24 13:09 [facility] Past Medical History Medical History (Updated 04/17/24 @ 09:15 by Cleo Bishop PA-C) Mild obstructive sleep apnea HTN (hypertension) Atrial fibrillation Cardiomyopathy Family History Family History Mother HTN (hypertension) Stroke Family history of problems with anesthesia: No Surgical History Surgical History H/O hernia repair H/O lithotripsy History of Problems with Anesthesia: No Social History Social History Alcohol intake: current Patient Tobacco Use Status: Never used Tobacco Use of substances other than those prescribed or required for medical reasons: No Advance Directives: No Advance Directives Information Provided: Yes Meds Allergies Allergy/AdvReac Type Severity Reaction Status Date / Time lisinopril Allergy Mild sensativity Verified 02/26/24 13:49 to light, diarrhea naproxen Allergy Mild stomach Verified 02/26/24 13:49 problems perflutren Allergy Mild Back Pain Verified 03/13/24 12:03 penicllin Allergy Mild Rash Uncoded 11/13/23 08:33 Home Medications ?Medication ?Instructions ?Recorded ?Confirmed ?Last Taken ?Type amlodipine 10 mg tablet 10 mg PO DAILY 07/31/22 03/30/24 Unknown History Exam Airway Mallampati Class: III TM Dist: >3cm Neck ROM: Full Assessment and Plan Assessment Anesthesia Assessment: Anesthesia Plan Discussed Final Anesthetic Review Family History of Problems with Anesthesia: No History of Problems with Anesthesia: No NPO: Yes ASA Class: III Final Preanesthetic Review: No Changes in Pt Med Stat, Meds/Allgs Chart Reviewed, Consent Obtained/Reviewed and Anes Risks/Benef Reviewed Patient Risk: Intermediate Procedure Risk: Low Anesthetic Plan Anesthetic Plan: GA Disposition: Standard PACU
--- OUTSIDE RECORDS SUMMARY | 2024-05-08 09:58 | XMS_ITS | Patient Health Record ---
Author Organization [facility] Address [address], [place] [id number] Care Team Providers Care Clinical Project Coordinator Name Role Phone No, PCP Primary Care Provider Irina Hammer Unavailable [phone] Reason For Referral No Information Plan Of Treatment No Information Insurance Providers Payer Name Payer Address Payer Phone Subscriber Number Group Number Insured Name Patient Relationship to Insured Coverage Start Date Coverage End Date [place] Medicaid Standard [address] [place] [address] [id number] Néstor Perea Self - patient is the insured 1 Insurance Pending [address] [place] [id number] Nésotr Perea Self - patient is the insured 1
[2024-05-08 12:39] VITALS: BMI 34.8
[2024-05-08 12:42] VITALS: BP 120/79; PULSE 85; RESP 16; TEMP 36.7; O2SAT 98
--- NOTE | 2024-05-08 13:21 | MHC.SHP ---
Pre-Procedural Eval Section A - 24 Hr Update-Section A only Date of Service: 05/08/24 The patient is an INPATIENT: No Section B - Complete if H&P > 30 days Chief Complaint: Unspecified atrial fibrillation Details of Present Illness: Atrial fibrillation, cardiomyopathy, here for cardioversion Relevant Family History (Specify if Yes): No Relevant Social History: None Present Medications: see Short Stay Collaborative assessment Medical History: No relevant PMH History of Previous Operations: No relevant previous surgery Allergies: Allergies Allergy/AdvReac Type Severity Reaction Status Date / Time lisinopril Allergy Mild sensativity Verified 02/26/24 13:49 to light, diarrhea naproxen Allergy Mild stomach Verified 02/26/24 13:49 problems perflutren Allergy Mild Back Pain Verified 03/13/24 12:03 penicllin Allergy Mild Rash Uncoded 11/13/23 08:33 Review of Systems Sugical H&P ROS: Negative: Constitution, Respiratory, Neurological, Psychiatric, Hem-Onc, Allergic/Immunologic, Gastrointestinal, Genitourinary, Musculoskeletal, Integumentary, Endocrine and Eyes/Ears/Nose/Throat and Yes, Specify: Cardiovascular (short of breath) Exam Surgical H&P Exam: Normal: HEENT, Normal: Heart, Normal: Lungs, Normal: Extremities, Normal: Abdomen, Normal: Skin and Normal: Neurological Plan I have reviewed the history and physical and performed a pertinent physical examination on my patient. No changes have occurred unless specified. Time Spent With Patient Time: Total time managing care of this patient today ____ minutes.
--- NOTE | 2024-05-08 13:23 | HO.CARDIVERS ---
Cardioversion Procedure Note Cardioversion Date of Procedure: 05/08/2024 Pre-Op Diagnosis: Atrial fibrillation Post-Op Diagnosis: Sinus rhythm Procedure: After informed consent was obtained, patient was taken to the PACU. The patient was then positioned appropriately. The cardioversion pads were placed in anteroposterior position. Once under anesthesia, 120 joules of synchronized shock was administered. The rhythm continued to be in atrial fibrillation. Again attempted at 150 joules and still unchanged. Then tried 200 joules and he converted to sinus rhythm. Complications: None. Impression: Successful cardioversion from atrial fibrillation to sinus rhythm, but required 3 attempts. Recommendations: Start amiodarone.
--- NOTE | 2024-05-08 13:33 | ECG_ITS ---
Test Reason : post cardioversion Blood Pressure : */* mmHG Vent. Rate : 55 BPM Atrial Rate : 55 BPM P-R Int : 192 ms QRS Dur : 98 ms QT Int : 456 ms P-R-T Axes : 14 5 23 degrees QTcB Int : 436 ms Sinus bradycardia Otherwise normal ECG No previous ECGs available Referred By: Ramos Reyes Electronically Signed By: RAMOS REYES
[2024-05-08 13:40] VITALS: BP 123/75; PULSE 53; RESP 15; TEMP 36.6; O2SAT 99
[2024-05-08 13:45] VITALS: BP 123/75; PULSE 57; RESP 16; O2SAT 99
[2024-05-08 13:50] VITALS: BP 112/72; PULSE 57; RESP 16; O2SAT 99
[2024-05-08 13:55] VITALS: BP 114/73; PULSE 57; RESP 16; O2SAT 98
[2024-05-08] MEDS: Amiodarone HCL 200 MG TABLET 400 MG PO (13:55)
[2024-05-08 14:02] VITALS: BP 121/77; PULSE 55; RESP 16; TEMP 36.6; O2SAT 98
== END 2024-05-08 14:37 | disposition home or self-care (01) ==
PROVIDERS: PCP Internal Medicine; Visit Provider Internal Medicine
PROC: 5A2204Z Restoration of Cardiac Rhythm, Single (ICD-10-PCS; principal; 2024-05-08 11:30)
DX: I48.91 Unspecified atrial fibrillation (principal); I42.9 Cardiomyopathy, unspecified; I10 Essential (primary) hypertension; R06.02 Shortness of breath; R42 Dizziness and giddiness; Z79.01 Long term (current) use of anticoagulants; G47.33 Obstructive sleep apnea (adult) (pediatric); Z99.89 Dependence on other enabling machines and devices; Z79.899 Other long term (current) drug therapy; Z88.0 Allergy status to penicillin; Z88.6 Allergy status to analgesic agent; Z88.8 Allergy status to other drugs, medicaments and biological substances; Z87.442 Personal history of urinary calculi; Z98.890 Other specified postprocedural states
CPT/HCPCS: 92960; 93005; J2003; J2704

== ENCOUNTER → 2024-05-08 09:51 | Outpatient (BNV) | payer OTHER, SELFPAY | PROVIDERS: PCP Internal Medicine; Visit Provider Internal Medicine | DX: R00.1 Bradycardia, unspecified (principal); I48.91 Unspecified atrial fibrillation | CPT/HCPCS: 93010 ==

== ENCOUNTER 2024-05-12 09:43 | Outpatient (AMB) | payer OTHER, SELFPAY ==
--- NOTE | 2024-05-12 09:48 | AM.OFFVISNUR ---
Intake Visit Reasons: EKG s/p cardioversion Allergies lisinopril Allergy (Mild, Verified 02/26/24 13:49) sensativity to light, diarrhea naproxen Allergy (Mild, Verified 02/26/24 13:49) stomach problems perflutren Allergy (Mild, Verified 03/13/24 12:03) Back Pain penicllin Allergy (Mild, Uncoded 11/13/23 08:33) Rash Nursing Note pt is here for nurse visit with ekg pt feels good ekg reviewed by Dr alonso Office Procedures EKG [id number], Complete
--- OUTSIDE RECORDS SUMMARY | 2024-05-12 10:46 | XMS_ITS | Patient Health Record ---
Author Organization [facility] Address [address], [place] [id number] Care Team Providers Care Reed Worker Name Role Phone No, PCP Primary Care Provider Irina Hammer Unavailable [phone] Reason For Referral No Information Plan Of Treatment No Information Insurance Providers Payer Name Payer Address Payer Phone Subscriber Number Group Number Insured Name Patient Relationship to Insured Coverage Start Date Coverage End Date [place] [address] [place] [address] [id number] Néstor Perea Self - patient is the insured 1 Insurance Pending [address] [place] [id number] Néstor Perea Self - patient is the insured 1
== END 2024-05-12 09:59 | disposition home or self-care (01) ==
PROVIDERS: PCP Internal Medicine; Visit Provider Internal Medicine
DX: R94.31 Abnormal electrocardiogram [ECG] [EKG] (principal)
CPT/HCPCS: 93010

== ENCOUNTER → 2024-05-12 09:43 | Outpatient (BNVA) | payer OTHER, SELFPAY | PROVIDERS: PCP Internal Medicine; Visit Provider Internal Medicine | DX: Z98.890 Other specified postprocedural states (principal) | CPT/HCPCS: 93005 ==

== ENCOUNTER 2024-05-22 09:36 | Outpatient (AMB) | payer OTHER, SELFPAY ==
[2024-05-22 09:59] VITALS: BP 120/72; PULSE 53; BMI 35.7
--- NOTE | 2024-05-22 09:59 | A.OFFVIS_ITS ---
Vital Signs 05/22/24 09:59 Height 6 ft 1 in Weight 270 lb 11.642 oz BMI 35.7 BP 120/72 Blood Pressure Location Lt brachial Position Sitting Pulse 53 Pulse Source Pulse Oximeter Intake Visit Reasons: Follow up post cardioversion Intake Note: f/up post cardioversion Pack Room Operator Required: No Accompanied by: Self / Same As Patient Allergies lisinopril Allergy (Mild, Verified 02/26/24 13:49) sensativity to light, diarrhea naproxen Allergy (Mild, Verified 02/26/24 13:49) stomach problems perflutren Allergy (Mild, Verified 03/13/24 12:03) Back Pain penicllin Allergy (Mild, Uncoded 11/13/23 08:33) Rash Medication List - Last Reconciled 05/22/24 by Diane Barroso NP-C amiodarone 200 mg PO DAILY amlodipine 10 mg PO DAILY metoprolol succinate ER (Toprol XL) 50 mg PO DAILY rivaroxaban (Xarelto) 20 mg PO DAILY HPI HPI Follow up post cardioversion: Details: Néstor is a 53-year-old male with past medical history of hypertension, sleep apnea now with CPAP use, were persistent atrial fibrillation who underwent cardioversion with Dr. Fletcher on 05/08/2024 and now presents for follow-up. Today he reports he has been feeling better overall. He believes most of his symptom relief came from the use of CPAP. He is describing increased energy and activity tolerance. Since the cardioversion he has notice less shortness of breath. He does not get chest discomfort at rest or with activity. He is not noticing heart palpitations, no lightheadedness, presyncope, syncope. He denies PND, orthopnea or edema. He tells me that he has 3 health issues that will likely require surgical intervention in the next several months. No surgery is scheduled. He has been taking his meds as directed. [facility] Medical History Mild obstructive sleep apnea HTN (hypertension) Atrial fibrillation Cardiomyopathy Surgical History H/O hernia repair H/O lithotripsy Family History Mother HTN (hypertension) Stroke Social History Alcohol intake: current Patient Tobacco Use Status: Never used Tobacco Review of Systems Const All systems reviewed & are unremarkable except as noted in HPI and below Denies chills, Denies fatigue, Denies fever(s), Denies frequent falls, Denies weakness, Denies weight gain and Denies weight loss ENT Denies dizziness Card Denies chest pain, Denies leg edema, Denies lightheadedness, Denies palpitations, Denies dyspnea and Denies dyspnea on exertion Resp Denies cough, Denies dyspnea and Denies dyspnea on exertion GI Details: abdominal/ inguinal hernias present Denies hematochezia Musc Details: right shoulder discomfort, neck discomfort at times with numbness into two of his fingers Denies abnormal gait, Denies muscle weakness, Denies numbness, Denies radiating pain into limb and Denies tingling Neuro Denies abnormal gait, Denies dizziness, Denies frequent falls, Denies numbness, Denies tingling and Denies weakness Endo Denies fatigue and Denies palpitations Physical Exam Vital Signs: Last Vital Signs Pulse 53 05/22/24 09:59 BP 120/72 05/22/24 09:59 BMI result Body Mass Index 35.7 Const General: cooperative, healthy appearing, comfortable and no acute distress Orientation/consciousness: patient oriented x3 Neck Neck: Yes normal visual inspection and Yes no JVD Resp Effort & Inspection: normal respiratory effort Auscultation: clear to auscultation bilaterally, no rales, no rhonchi and no wheezes Cardio Jugular venous distension: no JVD Rate: regular rate Rhythm: regular rhythm Heart sounds: S1 normal heart sound present, S2 normal heart sound present, no murmurs and no rubs Neuro General: patient oriented x3 Extrem General: Yes normal to inspection and No no pedal edema Psych Appearance: grossly normal Mental Status: mental status grossly normal Speech and movement: Normal speech and movement present Office Procedures EKG Details: Today, read by me, sinus bradycardia, nonspecific T-wave abnormality, rate 53, QTC 437 milliseconds [id number], Complete Assessment & Plan Assessment & Plan (1) Atrial fibrillation: Code(s): I48.91 - Unspecified atrial fibrillation Category: Medical Plan: Cardiac evaluation for shortness of breath with findings of atrial fibrillation. Holter monitor done 03/13/2024 for 3 days shows atrial fibrillation with average heart rate 125. Echocardiogram 03/13/2024 showed EF 40-45%, left atrium severely dilated. There was put on metoprolol for heart rate control and Xarelto for anticoagulation. He underwent a cardioversion on 05/08/[address] Fletcher with successful conversion to sinus rhythm. He was then started on amiodarone. EKG done today showing sinus bradycardia, rate 53, QTC 437 milliseconds. He denies any heart palpitations. His shortness of breath has resolved. He does have a newer diagnosis of sleep apnea and is now wearing CPAP. He reports increased energy and activity tolerance with CPAP use. Future plan is to send him for atrial fibrillation ablation. At this visit he is in need of 3 different surgeries, none of which are scheduled as of yet. He is describing C-spine surgery that he feels is more urgent then the others (hernia repair and right shoulder surgery). Will reach out to his neurosurgeon office to get last note for review. Will hold off on ablation at this time. Will continue amiodarone, metoprolol, Xarelto. Will update echocardiogram to see if EF has improved now that he isn't sinus rhythm. Will get a CTA of the coronary arteries to assess for CAD in the setting of reduced EF. Will check with his primary policy value calculator regarding any changes to this plan of care. Will check labs prior to his next visit, liver panel and TSH for amiodarone monitoring. Cardiology follow-up 2 months, sooner if needed. Will likely need cardiac clearance for surgery at that time. (2) Cardiomyopathy: Code(s): I42.9 - Cardiomyopathy, unspecified Category: Medical Plan: As above. May be rate related in the setting of AFib RVR. No signs of heart failure on examination. CTA of the coronary arteries is being done to assess for obstructive CAD. Repeat echo ordered. (3) Mild obstructive sleep apnea: Code(s): G47.33 - Obstructive sleep apnea (adult) (pediatric) Category: Medical Plan: Compliant with sleep apnea. Feeling much better. Less fatigue, increase energy. (4) HTN (hypertension): Code(s): I10 - Essential (primary) hypertension Category: Medical Plan: Well controlled at this time. No med changes made Plan Time spent on chart review, documentation, interview and assessment Orders: Orders CT Cardiac Coronary Angio Today I42.9 - Cardiomyopathy, unspecified, I48.91 - Unspecified atrial fibrillation CA Echo Limited Today I42.9 - Cardiomyopathy, unspecified Basic Metabolic Panel Today I48.91 - Unspecified atrial fibrillation Coding Level of Care Code Est Pt Level 4 (27534) Complex EM visit Add On G2211 Diagnoses Atrial fibrillation I48.91 Cardiomyopathy I42.9 Mild obstructive sleep apnea G47.33 HTN (hypertension) I10 CPT Codes EKG - CPT: 82387-[id number], Complete ([id number]) Time Spent (min) 38
== END 2024-05-22 10:36 | disposition home or self-care (01) ==
PROVIDERS: PCP Internal Medicine; Visit Provider Nurse Practitioner Family
DX: I48.91 Unspecified atrial fibrillation (principal); I42.9 Cardiomyopathy, unspecified; G47.33 Obstructive sleep apnea (adult) (pediatric); I10 Essential (primary) hypertension
CPT/HCPCS: 93010; 99214

== ENCOUNTER → 2024-05-22 09:36 | Outpatient (BNVA) | payer OTHER, SELFPAY | PROVIDERS: PCP Internal Medicine; Visit Provider Nurse Practitioner Family | DX: I48.91 Unspecified atrial fibrillation (principal); I42.9 Cardiomyopathy, unspecified; I10 Essential (primary) hypertension; G47.33 Obstructive sleep apnea (adult) (pediatric); Z79.01 Long term (current) use of anticoagulants; Z79.899 Other long term (current) drug therapy | CPT/HCPCS: 93005 ==

== ENCOUNTER 2024-05-27 12:35 | Outpatient (REF) | payer OTHER, SELFPAY ==
--- OUTSIDE RECORDS SUMMARY | 2024-05-27 14:44 | XMS_ITS | Patient Health Record ---
Author Organization [facility] Address [address], [place] [id number] Care Team Providers Care Color Paste Mixer Name Role Phone No, PCP Primary Care Provider Irina Hammer Unavailable [phone] Reason For Referral No Information Plan Of Treatment No Information Insurance Providers Payer Name Payer Address Payer Phone Subscriber Number Group Number Insured Name Patient Relationship to Insured Coverage Start Date Coverage End Date ID Medicaid Standard [address] [place] [address] [id number] Néstor Perea Self - patient is the insured 1 Insurance Pending [address] [place] [id number] Néstor Perea Self - patient is the insured 1
[2024-05-27 15:17] LABS: Anion Gap 14 (12-20); Blood Urea Nitrogen 11 mg/dL (9-16); Calcium 9.9 mg/dL (8.4-10.2); Carbon Dioxide 26 mmol/L (22-29); Chloride 103 mmol/L (96-108); Estimated Glomerular Filt Rate > 60; Glucose Random 87 mg/dL (60-115); Potassium 4.2 mmol/L (3.3-5.1); Sodium 139 mmol/L (135-145)
== END 2024-05-27 12:36 | disposition home or self-care (01) ==
LOC: HO.WFDLDS 12:35
PROVIDERS: Visit Provider Nurse Practitioner Family
DX: I48.91 Unspecified atrial fibrillation (principal)
CPT/HCPCS: 36415; 80048

== ENCOUNTER → 2024-06-05 07:49 | Outpatient (REF) | payer OTHER, SELFPAY ==
--- OUTSIDE RECORDS SUMMARY | 2024-06-05 07:52 | XMS_ITS | Patient Health Record ---
Author Organization [facility] Address [address], [place] [id number] Care Team Providers Care Rail Signal Worker Name Role Phone No, PCP Primary Care Provider Irina Hammer Unavailable [phone] Reason For Referral No Information Plan Of Treatment No Information Insurance Providers Payer Name Payer Address Payer Phone Subscriber Number Group Number Insured Name Patient Relationship to Insured Coverage Start Date Coverage End Date [place] [address] [place] [address] [id number] Néstor Perea Self - patient is the insured 1 Insurance Pending [address] [place] [id number] Néstor Perea Self - patient is the insured 1
--- NOTE | 2024-06-05 07:56 | ECG_ITS ---
Test Reason : afib Blood Pressure : */* mmHG Vent. Rate : 64 BPM Atrial Rate : 64 BPM P-R Int : 180 ms QRS Dur : 102 ms QT Int : 416 ms P-R-T Axes : 38 25 41 degrees QTcB Int : 429 ms Normal sinus rhythm Nonspecific T wave abnormality Abnormal ECG When compared with ECG of 08-May-2024 13:36, No significant change was found Referred By: Gerald Fletcher Electronically Signed By: Boyd Wright
== END ==
LOC: HO.CARD 07:49
PROVIDERS: PCP Internal Medicine; Visit Provider Internal Medicine
DX: I42.9 Cardiomyopathy, unspecified (principal); I48.91 Unspecified atrial fibrillation

== ENCOUNTER → 2024-06-05 07:56 | Outpatient (BNV) | payer OTHER, SELFPAY | PROVIDERS: PCP Internal Medicine; Visit Provider Internal Medicine Cardiovascular Disease | DX: R94.31 Abnormal electrocardiogram [ECG] [EKG] (principal); I48.91 Unspecified atrial fibrillation | CPT/HCPCS: 93010 ==

== ENCOUNTER 2024-07-16 09:26 | Outpatient (AMB) | payer OTHER, SELFPAY ==
--- NOTE | 2024-07-16 09:40 | MHC.OFFVIS ---
Vital Signs 07/16/24 09:41 Height 6 ft 1 in Weight 269 lb 13.533 oz BMI 35.6 BP 122/70 Blood Pressure Location Rt brachial Position Sitting Pulse 60 Pulse Source Monitor Intake Visit Reasons: 2m follow up Veterinary Pathologist Required: No Allergies lisinopril Allergy (Mild, Verified 07/16/24 09:43) sensativity to light, diarrhea naproxen Allergy (Mild, Verified 07/16/24 09:43) stomach problems perflutren Allergy (Mild, Verified 07/16/24 09:43) Back Pain IV Contrast Allergy (Mild, Uncoded 07/16/24 09:43) Unknown penicllin Allergy (Mild, Uncoded 07/16/24 09:43) Rash Medication List - Last Reconciled 07/16/24 by Diane Barroso, MARILU-C amiodarone 200 mg PO DAILY amlodipine 10 mg PO DAILY diphenhydramine HCl (Benadryl Allergy) 25 mg PO BEDTIME PRN metoprolol succinate ER (Toprol XL) 50 mg PO DAILY rivaroxaban (Xarelto) 20 mg PO DAILY HPI HPI 2m follow up: Details: Néstor is a 53-year-old male with past medical history of hypertension, sleep apnea now with CPAP use, mild cardiomyopathy, persistent atrial fibrillation who underwent cardioversion with Dr. Fletcher on 05/08/2024, who presents for follow-up after recent limited echo and CTA of the coronary arteries. Today he reports he has been feeling good. 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 He reports compliance with his CPAP and says he is feeling better with its use. He is not noticing any heart palpitations that feel like recurrent AFib. He has no chest discomfort at rest or with activity. His breathing is back to normal. No PND, orthopnea or edema. No lightheadedness, presyncope, syncope. He has not heard back from Neurology about whether he needs cervical disc surgery or not. He has a hernia that he says is easily reducible when it pops out. He denies any abdominal discomfort. No bleeding issues reported. Taking meds as directed. [facility] Medical History Mild obstructive sleep apnea HTN (hypertension) Atrial fibrillation Cardiomyopathy Surgical History H/O hernia repair H/O lithotripsy Family History Mother HTN (hypertension) Stroke Social History Alcohol intake: current Patient Tobacco Use Status: Never used Tobacco Review of Systems Const All systems reviewed & are unremarkable except as noted in HPI and below Card Denies chest pain, Denies chest pain at rest, Denies chest pain with activity, Denies rapid heart rate, Denies palpitations, Denies dyspnea, Denies dyspnea on exertion and Denies orthopnea Resp Details: wearing CPAP mask at night Denies dyspnea and Denies dyspnea on exertion Musc Denies no additional complaints Endo Denies palpitations Physical Exam Vital Signs: Last Vital Signs Pulse 60 07/16/24 09:41 BP 122/70 07/16/24 09:41 BMI result Body Mass Index 35.6 Const General: cooperative, healthy appearing, comfortable and no acute distress Orientation/consciousness: patient oriented x3 Neck Neck: Yes normal visual inspection and Yes no JVD Resp Effort & Inspection: normal respiratory effort Auscultation: clear to auscultation bilaterally, no rales, no rhonchi and no wheezes Cardio Jugular venous distension: no JVD Rate: regular rate Rhythm: regular rhythm Heart sounds: S1 normal heart sound present, S2 normal heart sound present, no murmurs and no rubs Neuro General: patient oriented x3 Extrem General: Yes normal to inspection and No no pedal edema Psych Appearance: grossly normal Mental Status: mental status grossly normal Speech and movement: Normal speech and movement present Office Procedures EKG Details: Today, read by me, ST, cant exclude prior anterior infarct, rate 60, Qtc 432ms [id number], Complete Assessment & Plan Assessment & Plan (1) Atrial fibrillation: Code(s): I48.91 - Unspecified atrial fibrillation Category: Medical Plan: Newer finding of atrial fibrillation which was persistent requiring cardioversion and use of amiodarone, 05/08/2023. He has not had known recurrent AFib since then. His Echocardiogram 03/13/2024 showed EF 40-45%, left atrium severely dilated. A repeat limited echo done on 06/05/2024 showed EF 50-55%. EKG done today showing normal sinus rhythm, rate 60, QTC 432 milliseconds. Ablation was discussed and he is reluctant at this time. He is interested in ongoing med management but would like to start on Multaq ( which 1 of his friends takes). Per prior discussion with Dr. Fletcher will leave on amiodarone for 3 months then transitioned to Multaq. Will have him reduce metoprolol by half down to 25 mg daily. Office EKG in 1 week following change. Continue Xarelto without interruption. Continue nightly use of CPAP. Cardiology follow-up in 2-3 months, sooner if needed. (2) Cardiomyopathy: Code(s): I42.9 - Cardiomyopathy, unspecified Category: Medical Plan: Mild cardiomyopathy likely related to AFib RVR. He did have CTA of the coronary arteries done on 05/28/2024 which showed no hemodynamically significant CAD. No signs of heart failure on examination. Continue with med management as above. (3) Mild obstructive sleep apnea: Code(s): G47.33 - Obstructive sleep apnea (adult) (pediatric) Category: Medical Plan: Compliant with sleep apnea. Feeling much better. Less fatigue, increase energy. (4) HTN (hypertension): Code(s): I10 - Essential (primary) hypertension Category: Medical Plan: Well controlled at this time. No med changes made Plan Time spent on chart review, documentation, interview and assessment Medications: New dronedarone (Multaq) must administer with a meal/food on 08/06/24 Stop Amiodarone On 08/07/24 Start Multaq 400 mg PO BID 30 days 60 tabs 5RF metoprolol succinate ER Reduce dose to 25mg daily starting on 08/07/24 25 mg PO DAILY 90 tabs 1RF Discontinued metoprolol succinate ER (Toprol XL) Discontinued Reason: Doctor's Order 50 mg PO DAILY 90 tabs 1RF Coding Level of Care Code Est Pt Level 4 (57316) Complex EM visit Add On G2211 Diagnoses Atrial fibrillation I48.91 Cardiomyopathy I42.9 Mild obstructive sleep apnea G47.33 HTN (hypertension) I10 CPT Codes EKG - CPT: 61229-[id number], Complete ([id number]) Time Spent (min) 30
[2024-07-16 09:41] VITALS: BP 122/70; PULSE 60; BMI 35.6
--- OUTSIDE RECORDS SUMMARY | 2024-07-16 10:18 | XMS_ITS | Patient Health Record ---
Author Organization [facility] Address [address], [place] [id number] Care Team Providers Care Chief Petroleum Engineer Name Role Phone No, PCP Primary Care Provider Irina Hammer Unavailable [phone] Reason For Referral No Information Plan Of Treatment No Information Insurance Providers Payer Name Payer Address Payer Phone Subscriber Number Group Number Insured Name Patient Relationship to Insured Coverage Start Date Coverage End Date [place] Medicaid Standard [address] [place] [address] [id number] Néstor Perea Self - patient is the insured 1 Insurance Pending [address] [place] [id number] Néstor Perea Self - patient is the insured 1
== END 2024-07-16 10:12 | disposition home or self-care (01) ==
PROVIDERS: PCP Internal Medicine; Visit Provider Nurse Practitioner Family
DX: I48.91 Unspecified atrial fibrillation (principal); I42.9 Cardiomyopathy, unspecified; G47.33 Obstructive sleep apnea (adult) (pediatric); I10 Essential (primary) hypertension
CPT/HCPCS: 93010; 99214

== ENCOUNTER → 2024-07-16 09:26 | Outpatient (BNVA) | payer OTHER, SELFPAY | PROVIDERS: PCP Internal Medicine; Visit Provider Nurse Practitioner Family | DX: I10 Essential (primary) hypertension (principal); I42.9 Cardiomyopathy, unspecified; I48.91 Unspecified atrial fibrillation; G47.33 Obstructive sleep apnea (adult) (pediatric); Z99.89 Dependence on other enabling machines and devices | CPT/HCPCS: 93005 ==